=== PATIENT | female | born 1945 | race African-American/Black ===

== ENCOUNTER 2023-01-20 19:46 | Emergency (ER) | payer MEDICARE, MEDICAID ==
[~2023-01-20] VITALS: Ht 165.1 cm; Wt 76.0 kg
[2023-01-20 20:30] VITALS: O2SAT 100
[2023-01-20 20:47] LABS: BASOPHILS % 1.1 % (0.0-2.0); HEMATOCRIT. 36.6 % (36.0-48.0); LYMPHOCYTES % 42.5 % (20.0-50.0); MEAN CORPUSCULAR HEMOGLOBIN 23.7 pg (28.0-32.0); MEAN PLATELET VOLUME 9.3 fl (7.4-10.4); MONOCYTES % 8.3 % (2.0-8.0); NEUTROPHILS % 44.1 % (40.0-76.0); PLATELET 206 x1000/uL (130-400); RED BLOOD CELL COUNT 5.08 mill/uL (4.2-5.4); RED CELL DISTRIBUTION WIDTH 17.1 % (11.6-14.6)
[2023-01-20 20:51] LABS: CHLORIDE 106 mEq/L (98-107)
[2023-01-21] MEDS ORDERED: ACETAMINOPHEN 325MG TABLET PO NR (04:15)
[2023-01-21 04:46] LABS: CLARITY URINE CLOUDY (CLEAR); COLOR URINE YELLOW (YELLOW); KETONES URINE NEGATIVE (NEGATIVE); LEUKOCYTE ESTERASE URINE 2+ (NEGATIVE); NITRITE URINE NEGATIVE (NEGATIVE); OCCULT BLOOD URINE 2+ (NEGATIVE); PH URINE 5.5 (4.5-8.0); PROTEIN URINE TRACE (NEGATIVE); SPECIFIC GRAVITY URINE 1.013 (1.005-1.030); UROBILINOGEN URINE 0.2 E.U./dL (0.2-1.0)
[2023-01-21 05:30] VITALS: TEMP 98.1
[2023-01-21] MEDS ORDERED: CEPH500T MT (05:49)
[2023-01-21] MEDS ORDERED: CEFTRIAXONE SODIUM 1 G/VIAL IM ONE (06:00)
[2023-01-21 06:43] VITALS: BP 164/62; PULSE 63; RESP 15
== END 2023-01-21 06:45 | disposition home or self-care (01) ==
LOC: ER 19:46
DX: N39.0 Urinary tract infection, site not specified (principal); I10 Essential (primary) hypertension
CPT/HCPCS: 99285; 71045; 80053; 83690; 85025; 87077; 36415; 93005; 74176; 81003; 87086; 87186; 96372; J0696